=== PATIENT | male | born 1950 | race Caucasian/White ===

== ENCOUNTER → 2023-09-21 08:39 | Outpatient (CLI) | payer MEDICARE, OTHER, SELFPAY ==
--- NOTE | ~2023-09-21 | MR_ITS ---
MRI of the right shoulder Technique: Axial proton-density fat-sat images, coronal proton density fat-sat and T2 fat-sat images, and sagittal T1-weighted and T2 fat-sat images were acquired. Clinical History: Rotator cuff insufficiency Findings: There is moderate to advanced AC joint degenerative change. Coracoclavicular, coracoacromia l, and coracohumeral ligaments are intact. There is a probably very focal moderate to high-grade bursal surface partial-thickness tear at the di stal anterior aspect of the infraspinatus tendon, measuring 3 mm in extent, but involving predominant ly 80% of the total tendon thickness. No partial or full-thickness tear of the supraspinatus tendon i dentified. Subscapularis tendon is intact with mild tendinosis. Tendon of the long head of the biceps is intact. No definite labral tear identified. Inferior glenohumeral ligament is intact. No degenerative change or effusion of the glenohumeral join t. No fluid distention of the subacromial/subdeltoid bursa. No muscle atrophy or edema. Impression: Probable 3 mm focal moderate to high-grade bursal surface partial tear at the distal, anterior descen ding. Mild rotator cuff tendinosis. Moderate to advanced AC joint degenerative change. Reviewed, dictated and finalized at location [facility] Impression: Probable 3 mm focal moderate to high-grade bursal surface partial tear at the d istal, anterior descending. Mild rotator cuff tendinosis. Moderate to advanced AC joint degenerative change.
== END ==
PROVIDERS: PCP Physician Assistant; Visit Provider Physician Assistant
DX: M25.311 Other instability, right shoulder (principal); M19.011 Primary osteoarthritis, right shoulder
CPT/HCPCS: 73221

== ENCOUNTER 2025-09-04 09:10 | Outpatient (CLI) | payer MEDICARE, SELFPAY ==
--- NOTE | ~2025-09-04 | MR_ITS ---
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 Sequences included coronal PD-weighted FSE, coronal PD-weighted FS FSE, sagittal T2-weighted FSE, sagittal PD-weighted FS FSE and axial PD weighted fat saturated FSE. COMPARISON: None. FINDINGS: Medial compartment: Complex medial meniscal tear with high signal intensity tear planes extending to the articular surfaces of the small posterior horn and small medial extruded meniscal body consistent with change of either prior partial meniscectomy versus displacement or secondary degenerative loss of meniscal tissue. Extensive deep chondral ulceration along the central weightbearing medial femoral condyle with underlying mild cortical irregularity and minimal subarticular edema-like signal change. Additional deep chondral ulceration with small focus of subarticular edema-like signal change at the central aspect of the medial tibial plateau. Lateral compartment: Lateral meniscus is normal. Deep chondral fissure without degenerative subchondral changes at the posterior aspect of the lateral tibial plateau. Remaining articular cartilage appears relatively preserved. Patellofemoral compartment: Deep chondral fissuring with tiny focus of underlying subchondral edema-like signal change at the medial aspect of the medial patellar facet. Additional partial-thickness chondral fissure without degenerative subchondral changes at the patellar apical ridge. Extensive partial thickness chondral ulceration and deep fissuring with scattered underlying irregularity to the articular cortex at the inferomedial aspect of the lateral trochlea and along the trochlear groove and medial trochlea. Ligaments and tendons: Anterior cruciate ligament is normal. There is thickening and mild increased signal of the femoral component of the posterior cruciate ligament consistent with likely partial tear. The medial collateral ligament and fibular collateral ligament complex are normal. Tolerated tendon is normal. Mild distal quadriceps tendinopathy without tear. The visualized medial and lateral hamstring tendons as well as the iliotibial band are normal. Fluid: Physiologic amount of fluid in the joint space. No loose osteochondral bodies identified. Osseous/other: No fracture or pathologic marrow replacing process. Small focus of susceptibility artifact near the apex of Hoffa's fat pad with scarring at the medial lateral aspect of Hoffa's fat pad likely related to prior surgery. IMPRESSION: 1. Complex medial meniscal tear with small posterior horn and diminutive extruded meniscal body which could reflect change of prior partial meniscectomy or displacement or secondary degenerative loss of meniscal tissue. Correlate with surgical history. 2. 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 3. Likely partial tear of the posterior cruciate ligament. Correlate with physical exam to assess for degree of residual functional integrity. Reviewed, dictated and finalized at location A. VEGETABLE IMPRESSION: 1. Complex medial meniscal tear with small posterior horn and diminutive extrud ed meniscal body which could reflect change of prior partial meniscectomy or di splacement or secondary degenerative loss of meniscal tissue. Correlate with cristina rgical history. 2. Tricompartmental osteoarthritis, severe with extensive high-grade chondromal acia in the medial compartment, mild with additional extensive moderate and hig h-grade chondral malacia in the patellofemoral compartment and mild with minima l moderate grade chondromalacia in the lateral compartment. 3. Likely partial tear of the posterior cruciate ligament. Correlate with physi vesta exam to assess for degree of residual functional integrity.
== END 2025-09-04 09:11 | disposition home or self-care (01) ==
LOC: MICIMG 09:11
PROVIDERS: PCP Internal Medicine; Visit Provider Physician Assistant Surgical
DX: M17.12 Unilateral primary osteoarthritis, left knee (principal)
CPT/HCPCS: 73721